=== PATIENT | female | born 1990 | race Caucasian/White ===

== ENCOUNTER 2016-11-22 20:07 | Emergency (ER) | payer MEDICAID ==
[~2016-11-22] VITALS: Ht 154.9 cm; Wt 82.0 kg
[2016-11-22 20:09] VITALS: BP 120/75; PULSE 94; RESP 16; TEMP 98; O2SAT 99
[2016-11-22 21:48] LABS: BACTERIA, URINE MANY /hpf; BLOOD, URINE MOD (NEG); COMMENT (UR) CULTURE INDICATED; CULTURE IF INDICATED CULTURE INDICATED; GLUCOSE,URINE NEG (NEG); KETONE, URINE NEG (NEG); MUCUS URINE MOD /lpf (OCC); SQUAMOUS EPITHELIAL CELL URINE 4 /hpf (0-5); URINE COLOR YELLOW (YELLW/STRAW)
[2016-11-22 21:49] LABS: NITRITE,URINE POS (NEG)
== END 2016-11-22 22:31 | disposition left against medical advice (07) ==
LOC: NED 20:07
DX: B96.20 Unspecified Escherichia coli [E. coli] as the cause of diseases classified elsewhere (principal); Z53.21 Procedure and treatment not carried out due to patient leaving prior to being seen by health care provider; R82.90 Unspecified abnormal findings in urine
CPT/HCPCS: 81001; 87077; 87086; 87186; 99281

== ENCOUNTER 2017-05-10 18:43 | Emergency (ER) | payer MEDICAID ==
[2017-05-10] MEDS ORDERED: MACR100C2 PO (19:48)
--- NOTE | 2017-05-10 19:49 | PD ---
HPI Chief Complaint Right upper quadrant and right upper uterine pain for about an hour and a half Date Seen: May 10, 2017 Travel History International Travel<30 Days: No Contact w/Intl Traveler<30Days: No Known Affected Area: No History of Present Illness HPI Patient 26-year-old white female 36 weeks is previous and [facility] presents complaining of right upper uterine pain for about an hour and a half today. She denies bleeding or leakage of fluid. Baby is active. Heart rate is reactive and no contractions denies nausea vomiting and diarrhea Para: 3 : 4 History Obstetric History Obstetric History Patient's had in the past of twins and has one other vaginal delivery prior Past Surgical History Narrative Surgical section Social History Alcohol Use: No Tobacco Use: No Substance Abuse: No Allergies-Medications (Allergen,Severity, Reaction): Coded Allergies: No Known Allergies (Unverified , 11/22/16) Home Meds No Active Prescriptions or Reported Meds Review of Systems General / Constitutional: No: Fever, Weight Gain, Chills, Other Eyes: No: Diploplia, Blurred Vision, Visual changes, Pain, Photophobia HENT: No: Headaches, Vertigo, Lightheadedness Cardiovascular: No: Irregular Rhythm, Chest Pain or Discomfort, Palpitations, Tachycardia, Syncope, Varicosities, Edema, Cyanosis Respiratory: No: Cough, Short of Breath, Other Gastrointestinal: Abdominal Pain, No: Nausea, Vomiting, Diarrhea Genitourinary: No: Decreased Urinary Output, Oliguria Musculoskeletal: No: Limited ROM, Weakness, Cramping, Edema, Pain Skin: No Rash, No Itching, No Dryness, No Lumps, No Change in Pigmentation, No Change in Nails, No Alopecia, No Lesions Neurologic: No: Weakness, Dizziness, Syncope, Focal Abnormalities, Coordination Problem, Headache, Slurred Speech, Seizures Psychiatric: No: Depression, Suicidal Ideations, Homicidal Ideation Endocrine: No: Heat Intolerance, Cold Intolerance, Polydipsia, Polyuria, Other Physical Exam Narrative GENERAL: Well-nourished, well-developed patient. SKIN: Warm and dry. HEAD: Normocephalic and atraumatic. EYES: No scleral icterus. No injection or drainage. ENT: No nasal drainage noted. Mucous membranes pink. Airway patent. NECK: Supple, trachea midline. No JVD. CARDIOVASCULAR: Regular rate and rhythm without murmurs, gallops, or rubs. RESPIRATORY: Breath sounds equal bilaterally. No accessory muscle use. BREASTS: Bilateral exam showed no masses , no retractions, no nipple discharge. ABDOMEN/GI: Abdomen soft, 1-2+ tender in the R upper quadrant , bowel sounds present, no rebound, no guarding Gravid to [-36] weeks size Fundal Height: [36-] GENITOURINARY: External Genitalia: intact and normal in appearance BUS glands: [-] Cervix: [] Closed Dilatation: [-0] Effacement: [Thick-] Station: [Posterior-] Membranes: [intact ] Uterine Contractions: [-none] FHT's: Category: [-1] Baseline: [133-] Reactive: [-yes] Variability: [-mod] Decels: [-none] EXTREMITIES: No cyanosis or edema. BACK: Nontender without obvious deformity. No CVA tenderness. NEUROLOGICAL: Awake and alert. Motor and sensory grossly within normal limits. Five out of 5 muscle strength in all muscle groups. Normal speech. Data Data Orders Urinalysis - C+S If Indicated (05/10/17 19:37) Ob/Psych Drug Screen, Urine (05/10/17 19:37) MDM Interpretation(s) Patient is 26-year-old white female previous now 36 weeks who presents with approximately 2 hour history of right upper abdominal pain around the right uterine horn is this area slightly tender to palpation. There is no other pains. Heart rate tracing is reactive and no contractions seen she has no bleeding or leakage of fluid urine dipstick was positive nitrites trace protein and trace leukocyte esterase. cervix is closed. Posterior., Patient 's pain could be related to adhesive disease from her could be referred for the UTI it is very likely just musculoskeletal discomfort from overdoing it chasing her toddler's & children Plan The patient to receive pain shot and she would like for relief. begin po macrobid 100 mg bid for 7 d, Otherwise she needs to be at home at bedrest would be heating pad on this side. Use Tylenol liberally 1-2 every 4 hours when necessary pain drink lots of water stay hydrated and once again bedrest is her best therapy at this time Diagnosis Diagnosis: Primary Impression: Abdominal pain during in third trimester Additional Impressions: Previous section UTI (urinary tract infection) in in third trimester Disposition: 01 DISCHARGE HOME Condition: Stable Scripts Nitrofurantoin Monohydrate Macrocrystals (Macrobid)100 Mg [id number] Mg PO BID #14 CAP Ref 0 Prov:Holland Middleton II, MD 05/10/17 Holland Middleton II, MD May 10, 2017 19:49
[2017-05-10] MEDS ORDERED: MEPERIDINE HCL 50 MG/ML VIAL IM ONE (20:00)
[2017-05-10] MEDS ORDERED: PROMETHAZINE INJ 25 MG/ML VIAL IM ONE (20:00)
[2017-05-10 20:14] LABS: BACTERIA, URINE MANY /hpf; BLOOD, URINE NEG (NEG); COMMENT (UR) CULTURE INDICATED; CULTURE IF INDICATED CULTURE INDICATED; GLUCOSE,URINE NEG (NEG); KETONE, URINE NEG (NEG); MUCUS URINE MOD /lpf (OCC); NITRITE,URINE NEG (NEG); SQUAMOUS EPITHELIAL CELL URINE 9 /hpf (0-5); URINE COLOR YELLOW (YELLW/STRAW)
[2017-05-16 09:57] LABS: BATH SALTS (MDPV) UR NEG (NEG); ECSTASY (MDMA) UR NEG (NEG); GABAPENTIN UR NEG (NEG); HEROIN (6-ACETYLMORPHINE) UR NEG (NEG); HYDROMORPHONE U NEG (NEG); K2 SPICE UR NEG (NEG); OBMETHADONE UR NEG (NEG); PHENCYCLIDINE URINE NEG (NEG)
[2017-06-07] MEDS ORDERED: SULF1TAB23 PO (08:41)
== END 2017-05-10 20:45 | disposition home or self-care (01) ==
LOC: HOBED 18:43
DX: O23.43 Unspecified infection of urinary tract in pregnancy, third trimester (principal); Z3A.36 36 weeks gestation of pregnancy
CPT/HCPCS: 59025; 80307; 81001; 87077; 87086; 87186; 96372; 99284; G0481; J2175; J2550

== ENCOUNTER 2017-05-31 02:03 | Emergency (ER) | payer MEDICAID ==
[~2017-05-31] VITALS: Ht 154.9 cm; Wt 88.0 kg
[~2017-05-31 02:03] MED LIST: MACR100C2 PO
--- NOTE | 2017-05-31 04:00 | PD ---
HPI Chief Complaint Pelvic pain Date Seen: May 31, 2017 Time Seen: 03:53 Travel History International Travel<30 Days: No Contact w/Intl Traveler<30Days: No Known Affected Area: No History of Present Illness HPI 26-year-old who is at 39 weeks gestation comes in with pelvic pressure and pelvic pain. Patient is been experiencing this for proximal a 2 days hurts the most when she initiates movements particular when she is trying to get out of bed or while when walking. Patient sees [facility] but has been here [place] for consult and has a repeat scheduled for this with a tubal ligation. Denies vaginal bleeding or rupture membranes, patient has good movement Weeks Gestation: 39 Para: 3 : 4 History Past Medical History Medical History: Denies Significant Hx Obstetric History Obstetric History 1 spontaneous vaginal delivery followed by 2 C-sections Past Surgical History Narrative Surgical section Family History Family History: Negative Social History Alcohol Use: No Tobacco Use: Yes Substance Abuse: No Allergies-Medications (Allergen,Severity, Reaction): Coded Allergies: No Known Allergies (Unverified , 11/22/16) Home Meds Discontinued Scripts Nitrofurantoin Monohydrate Macrocrystals (Macrobid) 100 Mg Cap, 100 MG PO BID for Infection, #14 CAP 0 Refills Prov:Holland Middleton II, MD 05/10/17 Review of Systems Except as stated in HPI: all other systems reviewed are Neg Physical Exam Narrative GENERAL: Well-nourished, well-developed patient. SKIN: Warm and dry. HEAD: Normocephalic and atraumatic. EYES: No scleral icterus. No injection or drainage. ENT: No nasal drainage noted. Mucous membranes pink. Airway patent. NECK: Supple, trachea midline. No JVD. CARDIOVASCULAR: Regular rate and rhythm without murmurs, gallops, or rubs. RESPIRATORY: Breath sounds equal bilaterally. No accessory muscle use. BREASTS: Bilateral exam showed no masses , no retractions, no nipple discharge. ABDOMEN/GI: Abdomen soft, non-tender, bowel sounds present, no rebound, no guarding Gravid to [37-] weeks size, large pannus with redundant tissue due to previous twin gestation Fundal Height: [-] GENITOURINARY: External Genitalia: intact and normal in appearance BUS glands: [-Normal] Cervix: [-Posterior] Dilatation: [-Fingertip] Effacement: [-50] Station: [--3] Presentation: [-Vertex] Membranes: [intact ] Uterine Contractions: [-Absent to occasional] FHT's: Category: [-1] Baseline: [-140] Reactive: [Moderate-] Variability: [-Moderate] Decels: [-Absent] EXTREMITIES: No cyanosis or edema. BACK: Nontender without obvious deformity. No CVA tenderness. NEUROLOGICAL: Awake and alert. Motor and sensory grossly within normal limits. Five out of 5 muscle strength in all muscle groups. Normal speech. Data Data Vital Signs Reviewed: Yes Group B Strep: Negative MDM Medical Record Reviewed: Yes Plan 26-year-old , history of twin gestation, history of 2 prior C-sections for repeat on Pelvic pain, hip pain most consistent with discomforts of . Minimal contractions are noted on the monitor and cervix is not dilated Baby with lots of movement and due to her habitus as well as the movement it's very difficult to keep this baby on the monitor but it is a category 1 heart rate tracing Patient to return to the hospital for her on Diagnosis Diagnosis: Primary Impression: Pelvic pain during in third trimester, antepartum Additional Impressions: 39 weeks gestation of Previous delivery affecting , antepartum Disposition: DISCHARGE HOME Shira Bui MD May 31, 2017 04:00
[2017-06-07] MEDS ORDERED: SULF1TAB23 PO (08:41)
== END 2017-05-31 04:18 | disposition home or self-care (01) ==
LOC: HOBED 02:03
DX: O26.893 Other specified pregnancy related conditions, third trimester (principal); R10.2 Pelvic and perineal pain; Z3A.39 39 weeks gestation of pregnancy; Z72.0 Tobacco use
CPT/HCPCS: 84112; 99283

== ENCOUNTER 2017-06-01 09:28 | Inpatient (IN) | payer MEDICAID ==
[~2017-06-01] VITALS: Ht 154.9 cm; Wt 88.0 kg
[2017-06-01] VITALS (16 sets, daily range): BP systolic 96–113; BP diastolic 53–79; PULSE 78–92; RESP 16–18; TEMP 97.3–98.3; O2SAT 95–97
[2017-06-01 10:11] LABS: AUTOMATED NEUTROPHIL # 5.9 TH/MM3 (1.8-7.7); BASOPHIL % 0.5 % (0.0-2.0); EOSINOPHIL # 0.2 TH/MM3 (0-0.4); EOSINOPHIL % 1.9 % (0.0-4.0); HEMATOCRIT 24.5 % (35.0-46.0); HEMO FLAGS DIFF FINAL; MEAN CORPUSCULAR HEMOGLOBIN 19.6 PG (27.0-34.0); MEAN CORPUSCULAR HGB CONC 31.1 % (32.0-36.0); MONO % 7.3 % (0.0-8.0); NEUT % 67.3 % (16.0-70.0); PLATELET COUNT 242 TH/MM3 (150-450); RED BLOOD COUNT 3.89 MIL/MM3 (4.00-5.30); WHITE BLOOD COUNT 8.8 TH/MM3 (4.0-11.0)
[2017-06-01 10:17] LABS: BACTERIA, URINE OCC /hpf; BLOOD, URINE NEG (NEG); CALCIUM OXALATE CRYSTALS,URINE MOD /hpf; COMMENT (UR) CULTURE INDICATED; CULTURE IF INDICATED CULTURE INDICATED; GLUCOSE,URINE NEG (NEG); KETONE, URINE TRACE mg/dL (NEG); MUCUS URINE MANY /lpf (OCC); NITRITE,URINE POS (NEG); SQUAMOUS EPITHELIAL CELL URINE 3 /hpf (0-5); URINE COLOR YELLOW (YELLW/STRAW)
[2017-06-01] MEDS ORDERED: LACTATED RINGER'S 1000 ML INJ 1,000 ML IV ONE (10:30)
[2017-06-01] MEDS: LACTATED RINGER'S 1000 ML INJ 1,000 ML IV SCH ×2 (11:01→17:40)
[2017-06-01] MEDS ORDERED: SODIUM CHLOR 0.9% 250 ML INJ 250 ML IV ONE ×2 (11:15→19:15)
[2017-06-01] MEDS ORDERED: ACETAMINOPHEN 1000 MG/100 ML 100 ML IV ONE (11:44)
[2017-06-01] MEDS ORDERED: CITRIC ACID-SODIUM CITRATE LIQ 30 ML UDC PO SCH (11:45)
[2017-06-01] MEDS ORDERED: ceFAZolin 2 GM PREMIX 50 ML IV SCH (12:00)
[2017-06-01] MEDS ORDERED: OXYTOCIN 10 UNIT/ML AMP ONE (13:00)
[2017-06-01] MEDS ORDERED: ePHEDrine/NS 50 MG/5 ML SYR IV ONE (13:00)
[2017-06-01] MEDS ORDERED: PARENTERAL ELECTROLYTES PH 7.4 1000 ML BAG IV ONE (13:30)
[2017-06-01] MEDS ORDERED: MORPHINE SULFATE PF 5 MG/10 ML VIAL ONE (13:51)
[2017-06-01] MEDS ORDERED: ONDANSETRON HCL 4 MG/2 ML VIAL ONE (13:51)
--- NOTE | 2017-06-01 16:43 | PD.OB.DELI ---
Procedure Note Section Procedure Performed by Gloria Neumann Procedure: Repeat Low Transverse Sec Indication for delivery: Desired elective repeat Previous condition: None Informed consent obtained: For anesthesia, For procedure Confirmed correct: Patient, Procedure, Site, Time-out taken Anesthesia: Spinal Medication prior to procedure: As documented in eMAR Monitoring during procedure: Blood pressure monitoring, rounding machine tender, monitor, Pulse oximetry Urinary catheter: Inserted using sterile technique, To dependent drainage, ml urine output (100cc clear) Sterile preparation: Other (Chloraprep) Operative Features Skin Incision: Pfannenstiel Uterine Incision: Low transverse w/knife / blunt ext Membranes Ruptured: Artificially Presentation: Occiput posterior Delivery date: Jun 01, 2017 Delivery time: 13:02 Delivery of infant: Uneventful : Male One Minute : 9 Five Minute : 9 Weight: 7#11oz. Status of : Viable, Cord blood, Nursery present Placenta delivered: Intact Medications: Antibiotics, Oxytocin Estimated blood loss: 500cc Procedure tolerated: Well (None) Maternal Condition: Stable Condition: Stable Procedure in detail See dictation Gloria Neumann MD Jun 01, 2017 16:43
[2017-06-01] MEDS ORDERED: OXYTOCIN 30 UNITS-500ML PREMIX 500 ML IV ONE (16:45)
[2017-06-01] MEDS ORDERED: SODIUM CHLORIDE 0.9% FLUSH 10 ML FLUSH IV FLUSH PRN (16:45)
[2017-06-01] MEDS ORDERED: DOCUSATE SODIUM 50 MG/SENNA 8.6 MG TAB PO PRN (16:45)
[2017-06-01] MEDS ORDERED: oxyCODONE/ACETAMINOPHEN 5 MG/325 MG TAB PO PRN (16:45)
[2017-06-01] MEDS ORDERED: ONDANSETRON HCL 4 MG/2 ML VIAL IV PUSH PRN (16:45)
--- NOTE | 2017-06-01 16:52 | HHI.HP ---
HPI Date Seen: Jun 01, 2017 Time Seen: 10:30 Travel History International Travel<30 Days: No Contact w/Intl Traveler<30Days: No History of Present Illness HPI Mrs. Stephenson is a 26-year-old at 39/1 weeks gestation presenting for scheduled repeat . Patient states that this has been complicated by her chronic anemia, but otherwise she has had no complications. She is a patient of [facility] and has been seen for her consult prior to today. She has signed paperwork for tubal ligation at this time. She endorses good activity and denies any loss of fluid, vaginal bleeding, or vaginal discharge. Otherwise she has no complaints and review of systems is otherwise negative. History Past Medical History Narrative Medical Chronic anemia Obstetric History Obstetric History 1 followed by 2 C-sections, all pregnancies uncomplicated Past Surgical History Narrative Surgical 2 uncomplicated C-sections Tonsillectomy Family History Family History: Negative Social History Alcohol Use: No Tobacco Use: Yes Substance Abuse: No Allergies-Medications (Allergen,Severity, Reaction): Coded Allergies: No Known Allergies (Unverified , 06/01/17) Home Meds Discontinued Scripts Nitrofurantoin Monohydrate Macrocrystals (Macrobid) 100 Mg Cap, 100 MG PO BID for Infection, #14 CAP 0 Refills Prov:Holland Middleton II, MD 05/10/17 Review of Systems Except as stated in HPI: all other systems reviewed are Neg Physical Exam Vital Signs Date Time Temp Pulse Resp B/P (MAP) Pulse Ox O2 Delivery O2 Flow Rate FiO2 06/01/17 15:31 98.2 83 18 113/69 (84) 06/01/17 14:49 79 18 96 06/01/17 14:49 101/66 (78) 06/01/17 14:34 98.0 06/01/17 14:34 78 98/57 (71) 06/01/17 14:34 18 96 06/01/17 14:19 85 18 96 06/01/17 14:19 98/55 (69) 06/01/17 14:03 18 97 06/01/17 14:03 87 98/57 (71) 06/01/17 13:50 98.0 92 18 95 06/01/17 13:50 108/60 (76) Narrative GENERAL: Well-nourished, well-developed patient. SKIN: Warm and dry. HEAD: Normocephalic and atraumatic. EYES: No scleral icterus. No injection or drainage. ENT: No nasal drainage noted. Mucous membranes pink. Airway patent. NECK: Supple, trachea midline. No JVD. CARDIOVASCULAR: Regular rate and rhythm without murmurs, gallops, or rubs. RESPIRATORY: Breath sounds equal bilaterally. No accessory muscle use. ABDOMEN/GI: Abdomen soft, non-tender, bowel sounds present, no rebound, no guarding Gravid to 39 weeks FHT's: Category: 1 Baseline: 140s Reactive: Positive Variability: Moderate Decels: None EXTREMITIES: No cyanosis or edema. BACK: Nontender without obvious deformity. No CVA tenderness. NEUROLOGICAL: Awake and alert. Motor and sensory grossly within normal limits. Five out of 5 muscle strength in all muscle groups. Normal speech. Caprini VTE Risk Assessment Caprini VTE Risk Assessment: Mod/High Risk (score >= 2) Caprini Risk Assessment Model Point Value = 1 Point Value = 2 Point Value = 3 Point Value = 5 Age 41-60 Minor surgery BMI > 25 kg/m2 Swollen legs Varicose veins or History of unexplained or recurrent spontaneous Oral contraceptives or hormone replacement Sepsis (< 1 month) Serious lung disease, including pneumonia (< 1 month) Abnormal pulmonary function Acute myocardial infarction Congestive heart failure (< 1 month) History of inflammatory bowel disease Medical patient at bed rest Age 61-74 Arthroscopic surgery Major open surgery (> 45 min) Laparoscopic surgery (> 45 min) Malignancy Confined to bed (> 72 hours) Immobilizing plaster cast Central venous access Age >= 75 History of VTE Family history of VTE Factor V Leiden Prothrombin [id number] Lupus anticoagulant Anticardiolipin antibodies Elevated serum homocysteine Heparin-induced thrombocytopenia Other congenital or acquired thrombophilia Stroke (< 1 month) Elective arthroplasty Hip, pelvis, or leg fracture Acute spinal cord injury (< 1 month) Prophylaxis Regimen Total Risk Factor Score Risk Level Prophylaxis Regimen 0-1 Low Early ambulation 2 Moderate Order ONE of the following: *Sequential Compression Device (SCD) *Heparin 5000 units SQ BID 3-4 Higher Order ONE of the following medications: *Heparin 5000 units SQ TID *Enoxaparin/Lovenox 40 mg SQ daily (WT < 150 kg, CrCl > 30 mL/min) *Enoxaparin/Lovenox 30 mg SQ daily (WT < 150 kg, CrCl > 10-29 mL/min) *Enoxaparin/Lovenox 30 mg SQ BID (WT < 150 kg, CrCl > 30 mL/min) AND/OR *Sequential Compression Device (SCD) 5 or more Highest Order ONE of the following medications: *Heparin 5000 units SQ TID (Preferred with Epidurals) *Enoxaparin/Lovenox 40 mg SQ daily (WT < 150 kg, CrCl > 30 mL/min) *Enoxaparin/Lovenox 30 mg SQ daily (WT < 150 kg, CrCl > 10-29 mL/min) *Enoxaparin/Lovenox 30 mg SQ BID (WT < 150 kg, CrCl > 30 mL/min) AND *Sequential Compression Device (SCD) Data Data Vital Signs Reviewed: Yes Orders Orders Admit To Inpatient (06/01/17 ) Code Status (06/01/17 10:04) Vital Signs (Adult) .ON ADMISSION (06/01/17 10:04) Activity Oob Ad Gudelia (06/01/17 10:04) Heart (06/01/17 10:04) Urinary Catheter Management LAURYN.Q8H (06/01/17 10:04) ^ Preps (06/01/17 10:04) Scd / Víctor / Foot Pump LAURYN.QSHIFT (06/01/17 10:04) ^ Ultrasound For Locatio (06/01/17 10:04) Diet Npo (06/01/17 Lunch) Lactated Ringer's 1000 Ml Inj (Lr 1000 M (06/01/17 10:30) Lactated Ringer's 1000 Ml Inj (Lr 1000 M (06/01/17 11:00) Citric Acid-Sodium Citrate Liq (Bicitra (06/01/17 11:45) Type And Screen (06/01/17 10:04) Complete Blood Count With Diff (06/01/17 10:04) Urinalysis - C+S If Indicated (06/01/17 10:04) Cefazolin Inj (Ancef Inj) (06/01/17 11:15) Inpatient Certification (06/01/17 ) Specimen To Be Collected PRN (06/01/17 10:04) Urine Culture (06/01/17 10:00) Cefazolin 2 Gm Premix (Ancef 2 Gm Premix (06/01/17 12:00) Red Blood Cells (Rbc) (06/01/17 11:12) Blood Product Administration .UPON TRANSFUSION (06/01/17 11:12) Instruction (06/01/17 11:12) Sodium Chlor 0.9% 250 Ml Inj (Ns 250 Ml (06/01/17 11:15) ^ Other Nursing Orders (06/01/17 11:12) Acetaminophen 1000 Mg/100 Ml (Ofirmev 10 (06/01/17 11:44) Oxytocin Inj (Pitocin Inj) (06/01/17 13:00) Morphine Pf Inj (Duramorph Pf 0.5 Mg/Ml (06/01/17 13:51) Ondansetron Inj (Zofran Inj) (06/01/17 13:51) Fentanyl Inj (Fentanyl Inj) (06/01/17 13:51) Ephedrine/Ns 50 Mg/5 Ml Syr (Ephedrine/N (06/01/17 13:00) Normosol R Inj (Normosol R Inj) (06/01/17 13:30) Vital Signs (Adult) Q4HX24,Q12H (06/01/17 16:39) Activity Bed Rest (06/01/17 16:39) ^ Discontinue (06/02/17 16:39) Remove Dressing (06/02/17 16:39) ^ Rhogam (06/01/17 16:39) Diet Liquid (06/01/17 Dinner) Lactated Ringer's 1000 Ml Inj (Lr 1000 M (06/01/17 21:39) Oxytocin 30 Units-500ml Premix (Pitocin (06/01/17 16:45) Oxytocin 30 Units-500ml Premix (Pitocin (06/02/17 02:45) Sodium Chloride 0.9% Flush (Ns Flush) (06/01/17 21:00) Sodium Chloride 0.9% Flush (Ns Flush) (06/01/17 16:45) Ibuprofen (Motrin) (06/01/17 16:45) Oxycodone-Acetamin 5-325 Mg (Percocet (06/01/17 16:45) Oxycodone-Acetamin 5-325 Mg (Percocet (06/01/17 16:45) Docusate Sodium-Senna (Pat-Colace) (06/01/17 16:45) Hzfemrs-Lfaot-Fiygkub Inj (M-M-R Ii Inj) (06/02/17 16:00) Cayr-Upf-Lkgvyx (Booster) Inj (Boostrix (06/02/17 16:00) Complete Blood Count With Diff (06/02/17 06:00) Ondansetron Inj (Zofran Inj) (06/01/17 16:45) Remove Urinary Catheter .ONCE (06/02/17 16:39) Labs Laboratory Tests Test 06/01/17 10:00 White Blood Count 8.8 Red Blood Count 3.89 Hemoglobin 7.6 Hematocrit 24.5 Mean Corpuscular Volume 63.0 Mean Corpuscular Hemoglobin 19.6 Mean Corpuscular Hemoglobin Concent 31.1 Red Cell Distribution Width 20.0 Platelet Count 242 Mean Platelet Volume 8.6 Neutrophils (%) (Auto) 67.3 Lymphocytes (%) (Auto) 23.0 Monocytes (%) (Auto) 7.3 Eosinophils (%) (Auto) 1.9 Basophils (%) (Auto) 0.5 Neutrophils # (Auto) 5.9 Lymphocytes # (Auto) 2.0 Monocytes # (Auto) 0.6 Eosinophils # (Auto) 0.2 Basophils # (Auto) 0.0 CBC Comment DIFF FINAL Differential Comment Urine Color YELLOW Urine Turbidity HAZY Urine pH 6.0 Urine Specific [place] 1.032 Urine Protein 30 Urine Glucose (UA) NEG Urine Ketones TRACE Urine Occult Blood NEG Urine Nitrite POS Urine Bilirubin NEG Urine Urobilinogen LESS THAN 2.0 Urine Leukocyte Esterase NEG Urine WBC 2 Urine Squamous Epithelial Cells 3 Urine Calcium Oxalate Crystals MOD Urine Bacteria OCC Urine Mucus MANY Microscopic Urinalysis Comment CULTURE INDICATED Date/Time Source Procedure Growth Status 06/01/17 10:00 Urine Clean Catch Urine Culture Pending Received Assessment/Plan Problem List: (1) 39 weeks gestation of ICD Codes: Z3A.39 - 39 weeks gestation of Assessment and Plan Mrs. Stephenson is a 26-year-old at 39/1 weeks gestation presenting for scheduled repeat 1. IUP at 39 weeks gestation admitted for repeat -Continue routine antepartum care - orders placed 2. Tubal ligation -Tubal ligation papers sign, however 30 day period has not passed -Patient offered rescheduling or to proceed with , at this time she has elected to proceed with -Referral to be placed for tubal ligation at discharge 3. Chronic anemia -CBC ordered with admission orders -Patient acceptable to blood transfusion if necessary SDW: Dr. Neumann, Dr. Hernandez Discharge Planning Pending clinical course post procedure Tr Stoner MD R2 Jun 01, 2017 16:52
[2017-06-01] MEDS ORDERED: PROMETHAZINE INJ 25 MG/ML VIAL IM ONE (17:15)
[2017-06-01 18:52] LABS: HEMATOCRIT 21.1 % (35.0-46.0); MEAN CORPUSCULAR HEMOGLOBIN 18.7 PG (27.0-34.0); PLATELET COUNT 212 TH/MM3 (150-450); RED BLOOD COUNT 3.29 MIL/MM3 (4.00-5.30); RED CELL DISTRIBUTION WIDTH 19.8 % (11.6-17.2); WHITE BLOOD COUNT 11.4 TH/MM3 (4.0-11.0)
[2017-06-01 18:54] LABS: MEAN CORPUSCULAR HGB CONC 29.3 % (32.0-36.0)
[2017-06-01 19:00] LABS: REVIEW FLAG FINAL
[2017-06-01] MEDS ORDERED: diphenhydrAMINE HCL 25 MG CAP PO PRN (19:15)
[2017-06-01] MEDS ORDERED: ACETAMINOPHEN 325 MG TAB PO PRN (19:15)
[2017-06-01] MEDS ORDERED: SODIUM CHLORIDE 0.9% FLUSH 10 ML FLUSH IV FLUSH SCH (21:00)
[2017-06-01] MEDS ORDERED: LACTATED RINGER'S 1000 ML INJ 1,000 ML IV SCH (21:39)
[2017-06-02] MEDS: oxyCODONE/ACETAMINOPHEN 5 MG/325 MG TAB PO PRN ×3 (00:50→18:05)
[2017-06-02 01:11] VITALS: RESP 18
[2017-06-02] MEDS ORDERED: OXYTOCIN 30 UNITS-500ML PREMIX 500 ML IV PRN (02:45)
[2017-06-02 05:55] LABS: AUTOMATED NEUTROPHIL # 7.9 TH/MM3 (1.8-7.7); BASOPHIL % 0.3 % (0.0-2.0); EOSINOPHIL # 0.2 TH/MM3 (0-0.4); EOSINOPHIL % 1.3 % (0.0-4.0); HEMATOCRIT 25.6 % (35.0-46.0); HEMO FLAGS DIFF FINAL; LYMPH % 19.3 % (9.0-44.0); LYMPHOCYTE # 2.2 TH/MM3 (1.0-4.8); MEAN CELL VOLUME 68.3 FL (80.0-100.0); MEAN CORPUSCULAR HEMOGLOBIN 21.7 PG (27.0-34.0); MEAN CORPUSCULAR HGB CONC 31.8 % (32.0-36.0); MONO % 8.9 % (0.0-8.0); NEUT % 70.2 % (16.0-70.0); PLATELET COUNT 179 TH/MM3 (150-450); RED BLOOD COUNT 3.74 MIL/MM3 (4.00-5.30); RED CELL DISTRIBUTION WIDTH 23.2 % (11.6-17.2); WHITE BLOOD COUNT 11.3 TH/MM3 (4.0-11.0)
--- NOTE | 2017-06-02 06:23 | MP ---
cc: GLORIA NEUMANN MD DATE OF SURGERY June 01, 2017 PREOPERATIVE DIAGNOSES 1. Intrauterine at 39 weeks and 1 day. 2. Severe anemia with hemoglobin of 7.6. 3. Prior delivery x 2. 4. Obesity. 5. Initially desired permanent surgical sterilization but has decided her partner will obtain a vasectomy. POSTOPERATIVE DIAGNOSES 1. Intrauterine at 39 weeks and 1 day. 2. Severe anemia with hemoglobin of 7.6. 3. Prior delivery x 2. 4. Obesity. 5. Initially desired permanent surgical sterilization but has decided her partner will obtain a vasectomy. SURGEON Gloria Neumann MD PREPARER [employer]PLES [employer] REPAIRS Terrell Gerber. Trina Gee. PROCEDURE Repeat low transverse section with two-layer closure and no extensions by Pfannenstiel skin incision. INDICATIONS The patient is a 26-year-old 4, para 3-0-0-4, who had two previous deliveries and presented for repeat at term. FINDINGS 1. A viable male in the cephalic presentation with Apgars 9 and 9, weighting 7 pounds, 11 ounces. 2. The patient had normal maternal anatomy with normal fallopian tubes, ovaries , and uterus. COMPLICATIONS None. ESTIMATED BLOOD LOSS 500 cc. URINE OUTPUT 100 cc, clear urine at the end of the procedure. FLUIDS 2800 cc total with 1 liter given in the OR. PROCEDURE DESCRIPTION After obtaining informed consent with thorough discussion with the patient including but not limited to risks of including pain, infection, bleeding, injury to other organs like the bladder, bowel, nerves and vessels, injury to the baby, need for repeat operation or hysterectomy, need for a blood transfusion which is likely in her case due to her starting hemoglobin level, wound infection or break down and other possible complications. We also discussed with the patient's desire for a tubal ligation. Unfortunately, her tubal papers are not mature and there is no emergent indication at this time for the . However, the patient was unwilling to wait until her papers are mature in several days. She has stated that her will proceed with a vasectomy instead. We discussed alternative methods including, in addition to waiting to deliver until papers mature with no urgent indication for delivery today, vascectomy as noted above, equipment operator intermodal yard reversible methods, short term reversible methods, and interval tubal ligation. After obtaining informed consent the patient was taken to the operating room with IV fluids running and reassuring heart tones noted. After arrival to the operating room, reassuring heart tones were confirmed and the patient underwent spinal anesthesia without difficulty. The patient was placed in the dorsal supine position with a leftward tilt and reassuring heart tones again confirmed. Adequate anesthesia was confirmed and the patient was prepped and draped in normal sterile fashion and a time-out procedure performed. After once again confirming adequate anesthesia, a Pfannenstiel skin incision was made with the scalpel and carried down to the fascia with the Bovie cautery. The fascia was nicked in the midline and the fascial incision extended laterally with the curved Waddell scissors. The Miach clamps were applied to the superior aspect of the fascial incision which was dissected off the underlying rectus muscles bluntly and with the curved Waddell scissors. The Micah clamps were applied to the inferior aspect of the fascial incision which was dissected off the underlying rectus muscles in a similar fashion. The rectus muscles were in the midline and the peritoneum entered bluntly. The peritoneal incision was extended bluntly. The bladder blade was inserted and the vesicouterine peritoneum identified, grasped with pickups and entered sharply with the Metzenbaum scissors. This incision was extended laterally and the bladder flap created digitally. The hysterotomy in the lower uterine segment was thinned out with the scalpel and the hysterotomy was created bluntly. The hysterotomy was extended bluntly. The vertex was elevated to the level of the hysterotomy and delivered atraumatically. The remainder of the was delivered atraumatically and the nose and mouth were suctioned with the bulb suction. The vigorous was placed on the sterile field and cord clamp delayed as per protocol. The cord was then doubly clamped and cut and the handed off to the waiting neonatology team. The placenta was removed manually. The uterus was exteriorized and cleared of all clots and debris. The hysterotomy was repaired with a #1 chromic in a running locked fashion. A second layer of the same suture was used in an imbricating fashion after which excellent hemostasis was noted. The uterus was returned to the abdomen and the gutters cleared of all clots and debris. The hysterotomy was reinspected and noted to be hemostatic. The peritoneum was reapproximated with 2-0 Vicryl in a running fashion. The rectus muscles were examined and noted to be hemostatic. The fascia was reapproximated with #1 Vicryl in a running fashion. The subcutaneous tissue was irrigated with warm normal saline and noted to be hemostatic. The fascia was noted to be without defect. The subcutaneous tissue was closed with 2-0 Vicryl in an interrupted fashion. The skin edges were reapproximated with 3-0 Monocryl in a subcuticular fashion. Dermabond was placed. Excellent hemostasis and cosmesis were noted. All sponge, lap and needle counts were correct x 2. I performed the entire procedure myself. The patient was taken to the PACU in stable condition. MD LOU Wade/TREVIN /11:20 PM /5:53 AM MTDD
[2017-06-02 08:20] VITALS: BP 95/59; PULSE 80; RESP 18; TEMP 98.6
[2017-06-02 10:27] VITALS: RESP 18
[2017-06-02] MEDS: IBUPROFEN 600 MG TAB PO PRN ×2 (11:40→18:05)
--- NOTE | 2017-06-02 14:08 | HHI.OB ---
Subjective Post Operative Day: 1 Remarks Pt seen and examined this morning. Postoperative day # 1. Patient hypotensive overnight. Patient states she feels much better after her transfusion and her nausea/vomiting has resolved. Incision nondraining. Decreased lochia. Denies dysuria. No breast tenderness. She is feeding the baby via breast and bottle. Appetite good. No nausea or vomiting. Patient has not yet had a bowel movement, but endorses bowel gas. Ambulating well. Denies calf pain or shortness of breath. Otherwise, she is doing well this morning and has no other concerns. Objective Vitals/I&O Vital Signs Date Time Temp Pulse Resp B/P (MAP) Pulse Ox O2 Delivery O2 Flow Rate FiO2 06/02/17 10:27 18 06/02/17 08:20 98.6 06/02/17 08:20 80 18 95/59 (71) 06/02/17 01:11 18 06/01/17 22:39 98.3 06/01/17 22:38 90 99/66 (77) 06/01/17 22:02 18 06/01/17 21:52 97.3 83 18 108/79 (89) 06/01/17 21:22 98.3 90 16 99/66 06/01/17 21:11 97.3 83 18 108/79 06/01/17 20:50 98.3 83 18 113/73 (86) 06/01/17 20:28 98.3 83 18 113/73 06/01/17 20:16 97.9 80 18 96/53 06/01/17 20:00 97.9 80 18 96/53 (67) 06/01/17 15:31 98.2 83 18 113/69 (84) 06/01/17 14:49 79 18 96 06/01/17 14:49 101/66 (78) 06/01/17 14:34 98.0 06/01/17 14:34 78 98/57 (71) 06/01/17 14:34 18 96 06/01/17 14:19 85 18 96 06/01/17 14:19 98/55 (69) 06/01/17 14:03 18 97 06/01/17 14:03 87 98/57 (71) Intake & Output 06/02/17 06/02/17 07:00 19:00 Intake Total 520 ml Balance 520 ml Packed Cells 500 ml Blood Product IV Normal Saline Flush 20 ml Result Diagram: 06/02/17 0529 Objective Remarks GENERAL: Well-nourished, well-developed patient. CARDIOVASCULAR: Regular rate and rhythm without murmurs, gallops, or rubs. RESPIRATORY: Breath sounds equal bilaterally. No accessory muscle use. ABDOMEN/GI: Abdomen soft, non-tender, bowel sounds present. Incision: Clean, dry and intact. Fundus: Firm, non-tender at umbilicus. GENITOURINARY: Light to moderate bleeding. EXTREMITIES: No cyanosis or edema, non-tender, without signs of DVT. Medications and IVs Current Medications Medications (Trade) Dose Ordered Sig/Shani Route Start Time Stop Time Status Last Admin Lactated Ringer's 1,000 ml @ 150 mls/hr Q6H40M IV 06/01/17 11:00 06/01/17 17:40 (Bicitra Liq) 30 ml TABLE TOP TILE SETTER PO 06/01/17 11:45 06/05/17 11:44 06/01/17 11:01 Cefazolin Sodium/ Dextrose 50 ml @ 100 mls/hr TABLE TOP TILE SETTER IV 06/01/17 12:00 06/05/17 11:59 Lactated Ringer's 1,000 ml @ 100 mls/hr Q10H IV 06/01/17 21:39 06/02/17 17:38 06/01/17 21:39 Oxytocin 500 ml @ 100 mls/hr UNSCH X1 PRN IV 06/02/17 02:45 06/03/17 02:44 (NS Flush) 2 ml BID IV FLUSH 06/01/17 21:00 06/01/17 21:00 (NS Flush) 2 ml UNSCH PRN IV FLUSH 06/01/17 16:45 (Motrin) 600 mg Q6H PRN PO 06/01/17 16:45 06/02/17 11:40 (Percocet 5-325 Mg) 1 tab Q4H PRN PO 06/01/17 16:45 (Percocet 5-325 Mg) 2 tab Q4H PRN PO 06/01/17 16:45 06/02/17 11:40 (Pat-Colace) 2 tab Q12H PRN PO 06/01/17 16:45 (M-M-R Ii Inj) 0.5 ml ONCE ONCE SQ 06/02/17 16:00 06/02/17 16:01 (Boostrix Inj) 0.5 ml ONCE ONCE IM 06/02/17 16:00 06/02/17 16:01 (Zofran Inj) 4 mg Q6H PRN IV PUSH 06/01/17 16:45 (Tylenol) 650 mg Q4H PRN PO 06/01/17 19:15 (Benadryl) 25 mg Q4H PRN PO 06/01/17 19:15 Assessment/Plan Problem List: (1) 39 weeks gestation of ICD Codes: Z3A.39 - 39 weeks gestation of Status: Acute (2) Delivered by section ICD Codes: O82 - Encounter for delivery without indication Status: Acute Assessment and Plan Mrs. Stephenson is a 26-year-old at 39/1 weeks gestation presenting for scheduled repeat 1. IUP at 39 weeks gestation admitted for repeat -Continue routine care. -Percocet and Motrin PRN pain. -Encouraged OOB. Advised pelvic rest for 6 wks. will need follow-up appointment in 1 week for incision check. -Re: ctrl, she would like stress her options at her follow-up appointment. -Anticipate discharge in 1-2 days. 2. Tubal ligation -Tubal ligation papers sign, however 30 day period has not passed -Patient offered rescheduling or to proceed with , at this time she has elected to proceed with -Referral to be placed for tubal ligation at discharge 3. Chronic anemia -Patient anemic to 6.2/21.1 -Patient transfused 2 units PRBC, post transfusion H/H 8.1/25.6 -Continue to monitor SDW: Dr. Neumann, Dr. Hernandez Discharge Planning Pending clinical course post procedure Tr Stoner MD R2 Jun 02, 2017 14:08
[2017-06-02] MEDS ORDERED: MEASLES, MUMPS, RUBELLA VACCINE 0.5 ML VIAL SQ ONE (16:00)
[2017-06-02] MEDS ORDERED: DIPHTH/TETANUS/ACEL PERTUSSIS (BOOSTER) 0.5 ML VIAL/PFS IM ONE (16:00)
[2017-06-02 20:20] VITALS: BP 113/66; PULSE 80; RESP 16; TEMP 98.1
[2017-06-03] MEDS: IBUPROFEN 600 MG TAB PO PRN ×3 (00:39→12:06)
[2017-06-03] MEDS: oxyCODONE/ACETAMINOPHEN 5 MG/325 MG TAB PO PRN ×2 (00:40→06:44)
--- NOTE | 2017-06-03 06:51 | HHI.OB ---
Subjective Post Operative Day: 2 Remarks Pt seen and examined this morning. Postoperative day # 2. Patient hypotensive overnight. AFVSS. Incision nondraining. Decreased lochia. Denies dysuria. No breast tenderness. She is feeding the baby via breast and bottle. Appetite good. No nausea or vomiting. Patient has not yet had a bowel movement, but endorses bowel gas. Ambulating well. Denies calf pain or shortness of breath. Otherwise, she is doing well this morning and has no other concerns. (Tr Stoner MD R2) Remarks Patient seen and evaluated with resident under direct supervision, agree with assessment and plan. (Porter Harrell MD) Objective Vitals/I&O Vital Signs Date Time Temp Pulse Resp B/P (MAP) Pulse Ox O2 Delivery O2 Flow Rate FiO2 06/02/17 20:20 98.1 80 16 113/66 (82) 06/02/17 10:27 18 06/02/17 08:20 98.6 06/02/17 08:20 80 18 95/59 (71) (Tr Stoner MD R2) Result Diagram: 06/02/17 0529 Objective Remarks GENERAL: Well-nourished, well-developed patient. CARDIOVASCULAR: Regular rate and rhythm without murmurs, gallops, or rubs. RESPIRATORY: Breath sounds equal bilaterally. No accessory muscle use. ABDOMEN/GI: Abdomen soft, non-tender, bowel sounds present. Incision: Clean, dry and intact. Fundus: Firm, non-tender at umbilicus. GENITOURINARY: Light to moderate bleeding. EXTREMITIES: No cyanosis or edema, non-tender, without signs of DVT. Medications and IVs Current Medications Medications (Trade) Dose Ordered Sig/Shani Route Start Time Stop Time Status Last Admin Lactated Ringer's 1,000 ml @ 150 mls/hr Q6H40M IV 06/01/17 11:00 06/01/17 17:40 (Bicitra Liq) 30 ml HAIR PREPARER PO 06/01/17 11:45 06/05/17 11:44 06/01/17 11:01 Cefazolin Sodium/ Dextrose 50 ml @ 100 mls/hr HAIR PREPARER IV 06/01/17 12:00 06/05/17 11:59 (NS Flush) 2 ml BID IV FLUSH 06/01/17 21:00 06/01/17 21:00 (NS Flush) 2 ml UNSCH PRN IV FLUSH 06/01/17 16:45 (Motrin) 600 mg Q6H PRN PO 06/01/17 16:45 06/03/17 06:43 (Percocet 5-325 Mg) 1 tab Q4H PRN PO 06/01/17 16:45 (Percocet 5-325 Mg) 2 tab Q4H PRN PO 06/01/17 16:45 06/03/17 06:44 (Pat-Colace) 2 tab Q12H PRN PO 06/01/17 16:45 (Zofran Inj) 4 mg Q6H PRN IV PUSH 06/01/17 16:45 (Tylenol) 650 mg Q4H PRN PO 06/01/17 19:15 (Benadryl) 25 mg Q4H PRN PO 06/01/17 19:15 (Tr Stoner MD R2) Assessment/Plan Problem List: (1) 39 weeks gestation of ICD Codes: Z3A.39 - 39 weeks gestation of Status: Acute (2) Delivered by section ICD Codes: O82 - Encounter for delivery without indication Status: Acute Assessment and Plan Mrs. Stephenson is a 26-year-old at 39/1 weeks gestation presenting for scheduled repeat 1. IUP at 39 weeks gestation admitted for repeat -Continue routine care. -Percocet and Motrin PRN pain. -Encouraged OOB. Advised pelvic rest for 6 wks. will need follow-up appointment in 1 week for incision check. -Re: ctrl, she would like discuss her options at her follow-up appointment. -Anticipate discharge tomorrow, 06/04. 2. Tubal ligation -Tubal ligation papers sign, however 30 day period has not passed -Patient offered rescheduling or to proceed with , at this time she has elected to proceed with -Referral to be placed for tubal ligation at discharge 3. Chronic anemia -Patient anemic to 6.2/21.1 -Patient transfused 2 units PRBC, post transfusion H/H 8.1/25.6 -Continue to monitor DW: Dr. Harrell Discharge Planning Likely tomorrow, 06/04 (Tr Stoner MD R2) Tr Stoner MD R2 Jun 03, 2017 06:51 Porter Harrell MD Jun 04, 2017 10:46
[2017-06-03 08:00] VITALS: BP 112/68; PULSE 74; RESP 18; TEMP 98.1
[2017-06-03] MEDS ORDERED: OXYC1TAB63 PO (11:28)
[2017-06-03] MEDS ORDERED: IBUP-232 PO (11:28)
--- NOTE | 2017-06-03 11:29 | HHI.DCPOC ---
Discharge Care Plan Diagnosis: (1) Delivered by section (2) Previous section Report Symptoms to Your Doctor -Temperature above 100.5 degrees -Redness, of incision or excessive or foul smelling drainage -Unusual pain or calf pain -Increased vaginal bleeding -Painful or difficulty urinating -Feelings of extreme sadness or anxiety after 2 weeks Goals to Promote Your Health * To prevent worsening of your condition and complications, please follow up with your doctor. * To maintain your health at the optimal level, please follow your doctor's recommendations. Directions to Meet Your Goals Take your medications as prescribed Follow your dietary instruction Follow activity as directed Ensure plenty of rest for recovery Drink fluids for hydration Keep your appointments as scheduled Take your immunizations and boosters as scheduled If your symptoms worsen call your PCP, if no PCP go to Urgent Care Center or Emergency Room Smoking is Dangerous to Your Health. Avoid second hand smoke Call the 24-hour crisis hotline for domestic abuse at Cooper Zambrano MD R2 Jun 03, 2017 11:29
[2017-06-07] MEDS ORDERED: SULF1TAB23 PO (08:41)
--- NOTE | 2017-06-07 10:28 | HHI.PR ---
Addendum to Inpatient Note Addendum Reason: Additional Documentation Additional Information [employer] team notified by microbiology Department urine culture during hospitalization positive for Escherichia coli greater than 100,000 colony forming units per milliliter. Patient notified of urine culture results via telephone on 06/07 at approximately 1030. Prescription for Bactrim DS to be taken twice today transmitted to patient's pharmacy. All questions answered and patient agreed to retrieve medication for treatment. Tr Stoner MD R2 Jun 07, 2017 10:28
== END 2017-06-03 12:32 | disposition home or self-care (01) | DRG 766 ==
LOC: H2EB 09:28 → H1EA 15:05
PROVIDERS: ADMIT Obstetrics & Gynecology; ATTEND Obstetrics & Gynecology
PROC: 10D00Z1 Extraction of Products of Conception, Low, Open Approach (ICD-10-PCS; principal; 2017-06-01)
PROC: 30233N1 Transfusion of Nonautologous Red Blood Cells into Peripheral Vein, Percutaneous Approach (ICD-10-PCS; 2017-06-01)
DX: O34.211 Maternal care for low transverse scar from previous cesarean delivery (principal); E66.9 Obesity, unspecified; D64.9 Anemia, unspecified; Z37.0 Single live birth; Z3A.39 39 weeks gestation of pregnancy; O99.02 Anemia complicating childbirth; O99.214 Obesity complicating childbirth; Z68.36 Body mass index [BMI] 36.0-36.9, adult; O99.334 Smoking (tobacco) complicating childbirth; F17.210 Nicotine dependence, cigarettes, uncomplicated
CPT/HCPCS: 36430; 59025; 81001; 84112; 85025; 85027; 86850; 86900; 86901; 86920; 87077; 87086; 87186; 90715; J0131; J2274; J2405; J2550; J2590; J3010; J7050; J7120; P9016